=== PATIENT | male | born 1990 | race Two or more races ===

== ENCOUNTER 2023-04-13 15:13 | Emergency (ER) | payer SELFPAY ==
[~2023-04-13] VITALS: Ht 175.3 cm; Wt 64.0 kg
[2023-04-13 15:27] VITALS: BP 116/81; PULSE 107; RESP 12; O2SAT 96
== END 2023-04-13 16:27 | disposition left against medical advice (07) ==
LOC: EDBD 15:13 → ER 15:13
DX: L03.114 Cellulitis of left upper limb (principal); F17.210 Nicotine dependence, cigarettes, uncomplicated